=== PATIENT | female | born 1995 | race Caucasian/White ===

== ENCOUNTER 2023-12-24 07:52 | Emergency (ER) | payer BC, SELFPAY ==
[2023-12-24 07:55] VITALS: BP 127/81
--- NOTE | 2023-12-24 08:05 | ED.GENMED ---
History of Present Illness
General
Chief Complaint: Nose Bleed
Source: patient and spouse
Exam Limitations: none
Time Seen by Provider: 12/24/23 08:16
Nursing documentation reviewed up to this point in time: agreed with
Travel History
Have you had any contact with someone who has COVID-19?: No
Do you have any symptoms of coronavirus? Fever > 100 degrees, chills, cough, shortness of breath, sore throat, loss of taste or smell, muscle aches, or headache?: No
History of Present Illness
History of Present Illness:
28-year-old female patient with a history of deviated nasal septum to the left previous surgery on 11/27/2023, about 3 and half weeks ago presenting to the emergency department today with concerns of intermittent bleeding since last night currently
controlling this at home. Claims that otherwise has been healing well from the procedure over the past few weeks. Noticed some large clots that she also coughed up as well. Denies any lightheadedness. Denies any preceding trauma or specific
issues otherwise. Not on blood thinners.
Review of Systems
Review of Systems
Allergies reviewed?: Yes
All Other Systems: ROS reviewed and negative except as documented in HPI and ROS
Phy Exam
Physical Exam
Physical Exam:
GENERAL: Alert , in no apparent distress
EYE: pupils equal and reactive
NECK: Supple, no significant adenopathy.
ENT: Dried blood throughout the nares some dried blood in the posterior pharynx however no ongoing or obvious bleeding at this moment. o/p clr, mmm.
CARDIAC: Regular rate and rhythm .
LUNGS: Clear breath sounds bilaterally, no acute respiratory distress, no wheezes/rales/rhonchi
ABDOMEN: Soft, without focal tenderness, no r/g, no cvat
NEUROLOGICAL: Alert and oriented, no focal neuro deficits
SKIN: Warm and dry, skin intact.
MUSCULOSKELETAL: No edema, well perfused.
PSYCH: Normal and appropriate interaction.
Course
Vital Signs
Initial and Last Documented VS:
Initial Vital Signs
Temp Pulse Resp BP Pulse Ox
98.8 F 106 16 127/81 98
12/24/23 07:55 12/24/23 07:55 12/24/23 07:55 12/24/23 07:55 12/24/23 07:55
Last Documented Vital Signs
Temp Pulse Resp BP Pulse Ox
98.8 F 106 16 127/81 98
12/24/23 07:55 12/24/23 07:55 12/24/23 07:55 12/24/23 07:55 12/24/23 07:55
Procedures
Nosebleed
Drug treatment: Lidocaine and Epinephrine
Treatment: local pressure applied and Merocel packing
Post treatment bleeding: none- good control
MDM/Problems Addressed
MDM/Problems Addressed:
28-year-old female presenting to the emergency department today with concerns of nosebleed. Recent septoplasty [address] Berumen. Had been healing well until last night when she noticed bleeding without any specific preceding trauma or
injury. Has noticed some large clots as well. Bleeding has been intermittent since then. Denies any lightheadedness. On arrival vital signs showing elevated pulse rate otherwise vital signs are normal. Case discussed with ENT pending packing to
the left nostril and close follow-up tomorrow for further assessment. Packing was placed patient tolerated well otherwise stable for outpatient follow-up return precautions given.
*Critical Care Note
Total Time (30-74mins, 75-104mins- exclusive of procedures): Not Applicable
ED Attending Note
-
Portions of this chart may have been created with voice recognition software.� Occasional wrong word or��sound alike� substitutions may have occurred due to the inherent limitations of voice recognition software.
Discharge Plan
Departure
Patient Disposition: Home (Routine Discharge)
Date of Disposition: 12/24/23
Time of Disposition: 09:36
Patient with high blood pressure during this ER visit?: No
Condition: Good
Covid-19: Not Applicable
Discharge Problem:
Acute anterior epistaxis
Instructions: Nosebleeds (DC)
Prescriptions:
No Action
multivitamin Tablet
1 tab PO DAILY
albuterol sulfate [ProAir HFA] 90 mcg/actuation Hfa Aerosol Inhaler
2 puff INHALATION 6XD PRN (Reason: ASTHMA/ALLERGIES)
sertraline [Zoloft] 50 mg Tablet
50 mg PO HS
acetaminophen-codeine [acetaminophen-codeine] 300-30 mg tablet
1 - 2 tab PO Q4HPRN PRN (Reason: Mod-severe pain) Qty: 30 0RF
cefuroxime axetil [cefuroxime axetil] 500 mg tablet
500 mg PO BID 7 Days Qty: 14 0RF
Referrals:
Siomara Orlando MD [Family Provider] -
Reagan Berumen MD [Active] - Tomorrow
Activity Restrictions/Additional Instructions:
You came to the emergency department today with concerns of nosebleed. You had a Merocel packing placed to the left nostril. This was discussed with the ENT doctor. Please call tomorrow morning to make an appointment for close follow-up. Return
to the emergency department for any worsening, new or concerning symptoms.
Interventions
Interventions:
*ED COVID-19 Vaccine History Last Done: 12/24/23 07:55
[2023-12-24 09:59] VITALS: BP 112/70
== END 2023-12-24 09:59 | disposition home or self-care (01) ==
LOC: EMR 07:52
PROVIDERS: EMERGENCY PHYSICIAN Emergency Medicine; FAMILY PHYSICIAN Family Medicine
DX: R04.0 Epistaxis (principal); J45.909 Unspecified asthma, uncomplicated; F41.9 Anxiety disorder, unspecified; Z98.890 Other specified postprocedural states; Z87.891 Personal history of nicotine dependence
CPT/HCPCS: 99283; 30901

== ENCOUNTER 2025-05-22 18:16 | Emergency (ER) | payer BC, SELFPAY ==
[2025-05-22 18:30] VITALS: BP 130/85
[2025-05-22 18:51] LABS: Hematocrit 36.5 % (37.0-47.0); Hemoglobin 12.4 g/dL (12.0-16.0); Mean Corp Hgb Conc. 34.0 g/dL (33.0-37.0); Mean Corpuscular Volume 89.5 fL (81.0-99.0); Nucleated Red Blood Cells % 0 %; Platelet Count 299 10^3/uL (130-400); Red Cell Dist. Width 12.9 % (11.5-14.5)
[2025-05-22 19:00] LABS: HCG, Serum Qualitative Screen Negative
[2025-05-22 19:06] LABS: ALT (SGPT) 13 U/L (0-35); AST (SGOT) 19 U/L (14-36); Albumin 5.0 g/dl (3.5-5.0); Alkaline Phosphatase 73 U/L (38-126); Blood Urea Nitrogen 15 mg/dl (7-17); Calcium 9.8 mg/dl (8.4-10.2); Carbon Dioxide 24 mmol/L (22-30); Chloride 106 mmol/L (98-107); Glucose 93 mg/dl (70-99); Potassium 4.0 mmol/L (3.5-5.1); Sodium 138 mmol/L (135-145); Total Protein 8.8 g/dl (6.3-8.2); eGFR > 60.00
[2025-05-22] MEDS: DUONEB 3 ML INH (21:16)
[2025-05-22 21:17] VITALS: BMI 29.9
--- NOTE | 2025-05-22 21:25 | ED.GENMED ---
History of Present Illness
General
Chief Complaint: Breathing Problem
Source: patient
Exam Limitations: none
Time Seen by Provider: 05/22/25 20:28
History of Present Illness
History of Present Illness:
29-year-old female presents with worsening trouble breathing and swallowing. She has had symptoms similar to this for 2 years but over the past week her symptoms significantly worsen. She describes a sensation that someone is choking her. She
also describes that her soft palate times collapses onto her tongue when she tries to breathe. She works as a dog hair clipper. She has been seen by ear nose and throat as well as GI. Over the past 2 years she has had endoscopies and a septal
deviation surgery. She was most recently seen by ENT who seem to think that she was dealing with reflux. She is not currently on an acid but she takes sertraline and Giovana daily. No vomiting. No fevers or rash. She has tried inhalers in the
past that sometimes seem to help. No other complaints
Phy Exam
Physical Exam
Physical Exam:
General: Well-appearing female no acute respiratory distress
HEENT: Normocephalic atraumatic posterior pharynx is patent uvula midline no abnormal motion of the soft palate neck is supple no trismus or drooling no adenopathy
Heart: Regular rate and rhythm
Lungs: Clear no wheeze or stridor
Abdomen is soft nontender
Course
Orders/Labs/Results
Orders:
Orders
05/22/25 18:34
Test Result ONCE
05/22/25 18:39
Complete Blood Count/With Diff Urgent
Comprehensive Metabolic Panel Urgent
HCG, Serum Qualitative Screen Urgent
05/22/25 20:51
CT Neck With Iv Contrast Urgent
Comment:
Reason For Exam: trouble breathing, throat closing sensation
Ipratropium/Albuterol Sulfate [Duoneb] 3 ml INH R NOW STA
Abnormal Lab Results
05/22/25
18:39
WBC 12.5 H 10^3/uL
(4.8-10.8)
RBC 4.08 L 10^6/uL
(4.20-5.40)
Hct 36.5 L %
(37.0-47.0)
Absolute Neuts (auto) 6.8 H 10^3/uL
(1.4-6.5)
Absolute Lymphs (auto) 4.2 H 10^3/uL
(1.2-3.4)
Absolute Monos (auto) 1.2 H 10^3/uL
(0.1-0.6)
Monocytes % 9.8 H %
(1.7-9.3)
Total Protein 8.8 H g/dl
(6.3-8.2)
05/22/25 18:39
05/22/25 18:39
Vital Signs
Initial and Last Documented VS:
Initial Vital Signs
Temp Pulse Resp BP Pulse Ox
98.5 F 68 18 130/85 100
05/22/25 18:30 05/22/25 18:30 05/22/25 18:30 05/22/25 18:30 05/22/25 18:30
Last Documented Vital Signs
Temp Pulse Resp BP Pulse Ox
98.5 F 68 18 115/64 98
05/22/25 18:30 05/22/25 18:30 05/22/25 18:30 05/22/25 22:00 05/22/25 22:45
MDM/Problems Addressed
Differential Diagnosis Includes:
Trouble swallowing difficulty breathing. Differential could include asthma versus allergy mediated process versus esophagitis will check CAT scan.
Will try DuoNeb. Labs ordered through triage show slightly elevated white count at 12.5 otherwise no significant finding
*Pulse Oximetry
SaO2: 100
Oxygen Mode of Delivery: Room air
Patient hypoxic: no
*Critical Care Note
Total Time (30-74mins, 75-104mins- exclusive of procedures): Not Applicable
Update Note
Update Note:
Patient noted improvement after nebulizer. CT negative. Suspect underlying allergy or asthma mediated process. Will prescribe nebulizer to use at home and have her consider Flonase. She has a specialist appointment in a week and a half. No
indication for admission. Stable for discharge
ED Attending Note
-
Portions of this chart may have been created with voice recognition software.� Occasional wrong word or��sound alike� substitutions may have occurred due to the inherent limitations of voice recognition software.
Discharge Plan
Departure
Patient Disposition: Home (Routine Discharge)
Date of Disposition: 05/22/25
Time of Disposition: 23:04
Patient with high blood pressure during this ER visit?: No
Discharge Problem:
Dyspnea
Instructions: Asthma, Adult (DC), Shortness of Breath (Dyspnea) (DC)
Prescriptions:
New
ipratropium-albuterol 0.5 mg-3 mg(2.5 mg base)/3 mL solution for nebulization
3 ml inhalation Q8H PRN (Reason: shortness of breath) Qty: 90 0RF
No Action
multivitamin Tablet
1 tab PO DAILY
albuterol sulfate [ProAir HFA] 90 mcg/actuation Hfa Aerosol Inhaler
2 puff INHALATION 6XD PRN (Reason: ASTHMA/ALLERGIES)
sertraline [Zoloft] 50 mg Tablet
50 mg PO HS
acetaminophen-codeine [acetaminophen-codeine] 300-30 mg tablet
1 - 2 tab PO Q4HPRN PRN (Reason: Mod-severe pain) Qty: 30 0RF
cefuroxime axetil [cefuroxime axetil] 500 mg tablet
500 mg PO BID 7 Days Qty: 14 0RF
Referrals:
Siomara Orlando MD [Family Provider, Family Practice]
Activity Restrictions/Additional Instructions:
Use nebulizer as needed for difficulty breathing. Consider using Flonase daily. Return if worse otherwise follow-up with your specialist as planned.
Interventions
Interventions:
*Risk Screen - Suicide Last Done: 05/22/25 21:18
*General Assessment Last Done: 05/22/25 21:18
*Neglect/Abuse Screening Last Done: 05/22/25 21:18
*ED- Fall Risk Assessment Last Done: 05/22/25 21:18
*ED COVID-19 Vaccine History Last Done: 05/22/25 21:18
ED- Cardiac Assessment Last Done: 05/22/25 21:18
ED- Pulmonary Assessment Last Done: 05/22/25 21:18
Discharge Date and Time
Print Language: BRUNEIAN
[2025-05-22 21:41] VITALS: BP 125/65
[2025-05-22 22:00] VITALS: BP 115/64
[2025-05-23 00:06] VITALS: BP 119/72
== END 2025-05-22 23:30 | disposition home or self-care (01) ==
LOC: EMR 18:16
PROVIDERS: Student in an Organized Health Care Education/Training Program; EMERGENCY PHYSICIAN Emergency Medicine; FAMILY PHYSICIAN Family Medicine
DX: R06.00 Dyspnea, unspecified (principal); R09.89 Other specified symptoms and signs involving the circulatory and respiratory systems; K21.9 Gastro-esophageal reflux disease without esophagitis
CPT/HCPCS: 99284; 70491; 80053; 84703; 85025; Q9967